=== PATIENT | female | born 1975 | race Caucasian/White ===

== ENCOUNTER → 2016-11-14 | Day surgery (SDC) | payer OTHER ==
[~2016-11-14] MED LIST: APREPITANT 40 MG CAP ONE; CIPR500T2 PO; IBUP-232 PO; LACTATED RINGER'S 1000 ML INJ 1,000 ML ONE; LACTCAP8 PO; MIDAZOLAM HCL 2 MG/2 ML VIAL ONE; NYST10007 TOPICAL; ONDANSETRON HCL 4 MG/2 ML VIAL IV PUSH ONE; PROPOFOL 200 MG/20 ML AMP IV ONE; ceFAZolin INJ 1,000 MG VIAL ONE
--- NOTE | 2016-11-16 09:36 | MP ---
cc: GARRET ALVAREZ M.D. DATE OF SURGERY 11/14/2016 DATE OF 1975 PREOPERATIVE DIAGNOSIS Patient with menorrhagia. PROCEDURE Exam under anesthesia. Diagnostic hysteroscopy. Fractional D&C. POSTOPERATIVE DIAGNOSIS Menorrhagia. SURGEON MD Jimmie ANESTHESIA General with LMA. ESTIMATED BLOOD LOSS None. DRAINS None. OPERATIVE FINDINGS The patient had a retroverted uterus measuring about 8 cm. No focal abnormality is present. No pelvic mass, no fixation, no deformity. Endometrial cavity was symmetrical without any focal abnormality. INDICATIONS FOR PROCEDURE Patient with recurrent heavy menstrual bleeding. Desires future fertility. RECOMMENDATIONS Proceed with endoscopic-directed biopsy. PROCEDURE The patient was taken to the operating room under general anesthesia, had an LMA placed. She was carefully positioned in dorsal lithotomy position using candy-cane stirrups with sequentials placed on lower extremities for VTE prophylaxis. She was prepped and draped. A time-out was conducted and agreed by all present in the room. The procedure initiated by examining the patient. The patient's cervix is midline, secured with a single-tooth tenaculum. Uterine sound was placed gently in a retroverted position measuring 8 cm. The endocervical canal was curetted and sent as a separate surgery pathology specimen. Hysteroscope was then used after dilating the cervix to #20 Jang dilator. The camera was a 0-degree lens with normal saline as distension media. Findings were described above. At the completion of the case, curettage of the endometrial cavity was performed and sent in permanent fixation. At the completion of the case final count was correct. The patient was stable. She was taken to the recovery room on room air. Garret Alvarez MD [facility] /8:00 AM /9:29 AM
== END | disposition home or self-care (01) ==
LOC: ESDC 06:16
PROVIDERS: ATTEND Obstetrics & Gynecology
DX: N92.0 Excessive and frequent menstruation with regular cycle (principal)
CPT/HCPCS: 00952; 58558; 88305; J0690; J2250; J2405; J3010; J7120; J8501

== ENCOUNTER 2017-02-11 06:20 | Inpatient (IN) | payer OTHER ==
[2017-02-11] VITALS (10 sets, daily range): BP systolic 107–125; BP diastolic 58–73; PULSE 62–100; RESP 17–20; TEMP 96.4–101.7; O2SAT 95–100
[~2017-02-11] VITALS: Ht 182.9 cm; Wt 120.2 kg
[~2017-02-11 06:20] MED LIST changes: -APREPITANT 40 MG CAP ONE; -LACTATED RINGER'S 1000 ML INJ 1,000 ML ONE; -MIDAZOLAM HCL 2 MG/2 ML VIAL ONE; -ONDANSETRON HCL 4 MG/2 ML VIAL IV PUSH ONE; -PROPOFOL 200 MG/20 ML AMP IV ONE; -ceFAZolin INJ 1,000 MG VIAL ONE
[2017-02-11] MEDS ORDERED: SODIUM CHLOR 0.9% 1000 ML INJ 1,000 ML IV SCH (06:59)
[2017-02-11] MEDS ORDERED: SODIUM CHLORIDE 0.9% FLUSH 10 ML FLUSH IV FLUSH PRN ×2 (07:00→10:30)
[2017-02-11] MEDS ORDERED: HYDROmorphone HCL PF 1 MG/ML VIAL IVS ONE (07:00)
[2017-02-11] MEDS ORDERED: cefTRIAXone INJ 1,000 MG in SODIUM CHLORIDE 0.9% INJ 100 ML IV ONE (07:00)
[2017-02-11] MEDS ORDERED: SODIUM CHLOR 0.9% 1000 ML INJ 1,000 ML IV ONE ×2 (07:00→09:15)
[2017-02-11] MEDS ORDERED: ONDANSETRON HCL 4 MG/2 ML VIAL IVP ONE (07:00)
--- NOTE | 2017-02-11 07:06 | PD ---
HPI Chief Complaint: Complaint Time Seen by Provider: 06:50 Travel History International Travel<30 days: No Contact w/Intl Traveler<30days: No Traveled to known affect area: No History of Present Illness HPI This is a 41 year old female who presents to the emergency department with back pain and lower abdominal pain, constant, moderate severity that has been going on for 3 days, associated with multiple episodes of vomiting. Patient denies any dysuria, frequency or urgency. She says 4 days ago she was diagnosed with a likely kidney infection by her primary care physician. She started taking ciprofloxacin 3 days ago but she's had no relief. She says she was up all night shaking with chills, vomiting and with severe pain in her lower back. She is otherwise healthy. She denies any history of IV drug use. She has had a gastric bypass in the past. PFSH Past Medical History Cancer: No Cardiovascular Problems: No Diabetes: No Diminished Hearing: No Endocrine: No Glaucoma: No Genitourinary: No Hepatitis: No Hiatal Hernia: No Hypertension: No Immune Disorder: No Musculoskeletal: Yes (ARTHRITIS ABIOLA KNEES) Neurologic: Yes (OCCAS MIGRAINE HEADACHES) Psychiatric: No Reproductive: No Respiratory: No Thyroid Disease: No ?: Not LMP: 01/27/17 : 2 Para: 1 Past Surgical History Abdominal Surgery: Yes (LAP BAND SX 2006 / GASTRIC BYPASS) AICD: No Body Medical Devices: LAP BAND Cardiac Surgery: No Ear Surgery: No Endocrine Surgery: No Eye Surgery: No Genitourinary Surgery: No Gynecologic Surgery: Yes (C SECTION X2; D & C X 3 , ) Joint Replacement: No Oral Surgery: No Pacemaker: No Thoracic Surgery: No Other Surgery: Yes (DNC SEP 2008) Social History Alcohol Use: No Tobacco Use: No (08/14 PPD) Substance Use: No Allergies-Medications (Allergen,Severity, Reaction): Coded Allergies: No Known Allergies (Verified , 02/11/17) Reported Meds & Prescriptions Reported Meds & Active Scripts Active Probiotic (Lactobacillus Acidophilus) 1 Cap Cap 1 Cap PO DAILY Ciprofloxacin (Ciprofloxacin HCl) 500 Mg Tab 500 Mg PO BID Ibuprofen 600 Mg Tab 600 Mg PO Q6H PRN Review of Systems Except as stated in HPI: all other systems reviewed are Neg Physical Exam Narrative GENERAL:Well appearing, no acute distress SKIN: Focused skin assessment warm and dry. HEAD: Atraumatic. Normocephalic. EYES: Pupils equal and round. No injection or drainage. ENT: Moist mucous membranes NECK: Trachea midline. CARDIOVASCULAR: Regular rate and rhythm. No murmur appreciated. RESPIRATORY: Clear to auscultation. Breath sounds equal bilaterally. GASTROINTESTINAL: Abdomen soft, tender to palpation in the suprapubic region with no rebound/guarding. : bilateral CVA tenderness. MUSCULOSKELETAL: No obvious deformities. NEUROLOGICAL: Awake and alert. No obvious cranial nerve deficits. Moving all extremities PSYCHIATRIC: Appropriate mood and affect; insight and judgment normal. Data Data Last Documented VS Vital Signs Date Time Temp Pulse Resp B/P Pulse Ox O2 Delivery O2 Flow Rate FiO2 02/11/17 09:20 70 17 124/63 98 Nasal Cannula 2 02/11/17 08:17 99.5 Orders Complete Blood Count With Diff (02/11/17 06:59) Comprehensive Metabolic Panel (02/11/17 06:59) Lipase (02/11/17 06:59) Lactic Acid (02/11/17 06:59) Urinalysis - C+S If Indicated (02/11/17 06:59) Iv Access Insert/Monitor (02/11/17 06:59) Ecg Monitoring (02/11/17 06:59) Oximetry (02/11/17 06:59) Ondansetron Inj (Zofran Inj) (02/11/17 07:00) Sodium Chlor 0.9% 1000 Ml Inj (Ns 1000 M (02/11/17 06:59) Sodium Chloride 0.9% Flush (Ns Flush) (02/11/17 07:00) Hydromorphone Pf Inj (Dilaudid Pf Inj) (02/11/17 07:00) Blood Culture (02/11/17 06:59) Sodium Chlor 0.9% 1000 Ml Inj (Ns 1000 M (02/11/17 07:00) Ceftriaxone Inj (Rocephin Inj) (02/11/17 07:00) Ketorolac Inj (Toradol Inj) (02/11/17 07:30) Urine Culture (02/11/17 08:10) Ed Urine Pregnancytest Poc (02/11/17 09:01) Hydromorphone Pf Inj (Dilaudid Pf Inj) (7/2/17 09:15) Sodium Chlor 0.9% 1000 Ml Inj (Ns 1000 M (02/11/17 09:15) Labs Laboratory Tests Test 02/11/17 02/11/17 07:20 08:10 White Blood Count 5.0 TH/MM3 Red Blood Count 4.06 MIL/MM3 Hemoglobin 10.6 GM/DL Hematocrit 33.2 % Mean Corpuscular Volume 81.7 FL Mean Corpuscular Hemoglobin 26.2 PG Mean Corpuscular Hemoglobin 32.0 % Concent Red Cell Distribution Width 15.5 % Platelet Count 122 TH/MM3 Mean Platelet Volume 10.5 FL Neutrophils (%) (Auto) 83.4 % Lymphocytes (%) (Auto) 7.9 % Monocytes (%) (Auto) 8.4 % Eosinophils (%) (Auto) 0.0 % Basophils (%) (Auto) 0.3 % Neutrophils # (Auto) 4.1 TH/MM3 Lymphocytes # (Auto) 0.4 TH/MM3 Monocytes # (Auto) 0.4 TH/MM3 Eosinophils # (Auto) 0.0 TH/MM3 Basophils # (Auto) 0.0 TH/MM3 CBC Comment DIFF FINAL Differential Comment Sodium Level 139 MEQ/L Potassium Level 3.8 MEQ/L Chloride Level 105 MEQ/L Carbon Dioxide Level 26.9 MEQ/L Anion Gap 7 MEQ/L Blood Urea Nitrogen 14 MG/DL Creatinine 1.04 MG/DL Estimat Glomerular Filtration 59 ML/MIN Rate Random Glucose 103 MG/DL Lactic Acid Level 1.3 mmol/L Calcium Level 9.3 MG/DL Total Bilirubin 0.8 MG/DL Aspartate Amino Transf 15 U/L (AST/SGOT) Alanine Aminotransferase 19 U/L (ALT/SGPT) Alkaline Phosphatase 70 U/L Total Protein 7.6 GM/DL Albumin 3.2 GM/DL Lipase 100 U/L Urine Color YELLOW Urine Turbidity HAZY Urine pH 6.5 Urine Specific [place] 1.014 Urine Protein 100 mg/dL Urine Glucose (UA) NEG mg/dL Urine Ketones 10 mg/dL Urine Occult Blood MOD Urine Nitrite NEG Urine Bilirubin NEG Urine Urobilinogen 8.0 MG/DL Urine Leukocyte Esterase SMALL Urine RBC 135 /hpf Urine WBC 48 /hpf Urine Squamous Epithelial 7 /hpf Cells Urine Transitional Epithelial <1 /hpf Cells Urine Bacteria MOD /hpf Urine Mucus FEW /lpf Microscopic Urinalysis Comment CULTURE INDICATED MDM Medical Decision Making Medical Screen Exam Complete: Yes Emergency Medical Condition: Yes Interpretation(s) Temperature is 101.7, normotensive No leukocytosis Electrolytes are reassuring Lactic acid is 1.3 Lipase is normal Urinalysis demonstrates urinary tract infection Differential Diagnosis Pyelonephritis, nephrolithiasis, sepsis, cystitis Narrative Course This is a 41-year-old female who presents to the emergency department with fever and bilateral flank pain with nausea and vomiting. The patient was diagnosed with a likely kidney infection earlier this week and has taken 3 days of ciprofloxacin that her symptoms are worsening. She is placed in a monitor and an IV was established. She was found to be febrile. She was given a dose of ceftriaxone and given 2 L of IV fluid. She was given pain control and antiemetics in the emergency department. Urinalysis confirms urinary tract infection. She does have a lot of blood in her urine which I suspect is related to more hemorrhagic cystitis. She doesn't lateralize her pain and also I doubt this is a kidney stone. We discussed the risks versus benefits of imaging and we decided to defer at this time. Despite multiple doses of pain medication patient still feels uncomfortable and doesn't look well on exam. I think she merits admission to the hospital and she's failed outpatient therapy. Diagnosis Primary Impression: Pyelonephritis Admitting Information Admitting Physician Requests: Admit Melanie Cabrera MD Feb 11, 2017 07:06
[2017-02-11] MEDS ORDERED: KETOROLAC TROMETHAMINE 30 MG/ML (IVP) VIAL IVP ONE (07:30)
[2017-02-11 07:32] LABS: AUTOMATED NEUTROPHIL # 4.1 TH/MM3 (1.8-7.7); BASOPHIL % 0.3 % (0.0-2.0); HEMATOCRIT 33.2 % (35.0-46.0); HEMO FLAGS DIFF FINAL; LYMPH % 7.9 % (9.0-44.0); LYMPHOCYTE # 0.4 TH/MM3 (1.0-4.8); MEAN CELL VOLUME 81.7 FL (80.0-100.0); MEAN CORPUSCULAR HEMOGLOBIN 26.2 PG (27.0-34.0); MONO % 8.4 % (0.0-8.0); NEUT % 83.4 % (16.0-70.0); PLATELET COUNT 122 TH/MM3 (150-450); RED BLOOD COUNT 4.06 MIL/MM3 (4.00-5.30); RED CELL DISTRIBUTION WIDTH 15.5 % (11.6-17.2)
[2017-02-11 08:16] LABS: ALT (GPT) 19 U/L (10-53); ANION GAP 7 MEQ/L (5-15); AST (GOT) 15 U/L (15-37); BICARBONATE 26.9 MEQ/L (21.0-32.0); BLOOD UREA NITROGEN 14 MG/DL (7-18); CHLORIDE 105 MEQ/L (98-107); GLOMERULAR FILTRATION RATE 59 ML/MIN (>89); POTASSIUM 3.8 MEQ/L (3.5-5.1); SODIUM (NA) 139 MEQ/L (136-145)
[2017-02-11 08:18] LABS: ALKALINE PHOSPHATASE 70 U/L (45-117); TOTAL BILIRUBIN ADULT 0.8 MG/DL (0.2-1.0)
[2017-02-11 08:32] LABS: BACTERIA, URINE MOD /hpf; BLOOD, URINE MOD (NEG); GLUCOSE,URINE NEG (NEG); KETONE, URINE 10 mg/dL (NEG); MUCUS URINE FEW /lpf (OCC); NITRITE,URINE NEG (NEG); PH, URINE 6.5 (5.0-8.5); SQUAMOUS EPITHELIAL CELL URINE 7 /hpf (0-5); TRANSITIONAL EPI CELLS, URINE <1 /hpf; URINE COLOR YELLOW (YELLW/STRAW)
[2017-02-11 08:34] LABS: COMMENT (UR) CULTURE INDICATED; CULTURE IF INDICATED CULTURE INDICATED
[2017-02-11] MEDS ORDERED: HYDROmorphone HCL PF 1 MG/ML VIAL IV PUSH ONE (09:15)
--- NOTE | 2017-02-11 10:14 | HHI.HP ---
HPI Service Family Medicine Primary Care Physician No Primary Care Physician Admission Diagnosis pyelonephritis Diagnoses: International Travel<30 Days: No Contact w/Intl Traveler<30days: No Known Affected Area: No History of Present Illness Patient is a 39-year-old female with a past medical history of bilateral knee arthritis that presents to the [facility] ED with a chief complaints of fever, chills, nausea, vomiting, dysuria, back pain of one week duration. She was last seen at the [facility] on Sunday where she was prescribed ciprofloxacin by mouth to complete a 14 day course. She took the medication as prescribed for 2 days but continued to have fever and chills and back pain,basically, she did not improve. Last night she could barely sleep and was vomiting and dry heaving all night. She also had increasing fever up to 102 F and worsened back pain, prompting her to present to the ED. (Silvia Herrera MD R1) Review of Systems Constitutional: COMPLAINS OF: Fever, Chills, Change in appetite, Night Sweats Eyes: DENIES: Blurred vision, Vision loss Ears, nose, mouth, throat: DENIES: Hearing loss, Throat pain, Ear Pain Respiratory: DENIES: Cough, Shortness of breath Cardiovascular: COMPLAINS OF: Palpitations, DENIES: Chest pain, Syncope, Lower Extremity Edema Gastrointestinal: COMPLAINS OF: Abdominal pain, Constipation, Nausea, Vomiting , DENIES: Bloody stools Genitourinary: COMPLAINS OF: Urinary frequency, Dysuria Musculoskeletal: COMPLAINS OF: Joint pain (chronic arthritis of the knees), Back pain Integumentary: DENIES: Pruritus, Rash Hematologic/lymphatic: DENIES: Bruising Neurologic: COMPLAINS OF: Headache, DENIES: Localized weakness, Paresthesias Psychiatric: DENIES: Anxiety, Depression (Silvia Herrera MD R1) Past Family Social History Past Medical History Morbid obesity Bilateral knee arthritis Past Surgical History C/S x2 Lap band surgery 2006 Gastric bypass 2013 Hemorrhoidectomy Multiple D+Cs Reported Medications Reported Meds & Active Scripts Active Probiotic (Lactobacillus Acidophilus) 1 Cap Cap 1 Cap PO DAILY Ciprofloxacin (Ciprofloxacin HCl) 500 Mg Tab 500 Mg PO BID Ibuprofen 600 Mg Tab 600 Mg PO Q6H PRN (Silvia Herrera MD R1) Allergies: Coded Allergies: No Known Allergies (Verified , 02/11/17) Family History Father at 45yo due to "bone cancer" Mother living with DM2. 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 Used to smoke 1ppd EtOH: denies Illicit drugs: denies (Eko,Silvia U R1) Physical Exam Vital Signs Vital Signs Date Time Temp Pulse Resp B/P Pulse Ox O2 Delivery O2 Flow Rate FiO2 02/11/17 09:20 70 17 124/63 98 Nasal Cannula 2 02/11/17 09:19 17 02/11/17 09:19 17 02/11/17 08:28 78 17 125/59 97 Nasal Cannula 2 02/11/17 08:17 99.5 02/11/17 07:15 82 18 122/73 98 Nasal Cannula 2 02/11/17 07:02 98 Room Air 02/11/17 06:22 101.7 100 20 122/59 96 Room Air Physical Exam GENERAL: This is a well-nourished, well-developed patient, obese pt in no apparent distress but appears in pain. SKIN: No rashes, ecchymoses or lesions. Cool and dry. HEAD: Atraumatic. Normocephalic. No temporal or scalp tenderness. EYES: Pupils equal round and reactive. Extraocular motions intact. No scleral icterus. No injection or drainage. ENT: Nose without bleeding, purulent drainage or septal hematoma. Throat without erythema, tonsillar hypertrophy or exudate. Uvula midline. Airway patent. NECK: Trachea midline. No JVD or lymphadenopathy. Supple, nontender, no meningeal signs. CARDIOVASCULAR: Regular rate and rhythm without murmurs, gallops, or rubs. RESPIRATORY: Clear to auscultation. Breath sounds equal bilaterally. No wheezes , rales, or rhonchi. GASTROINTESTINAL: Abdomen soft, non-tender, tender to palpation in the suprapubic region bilaterally. No hepato-splenomegaly, or palpable masses. No guarding. BACK: Bilateral CVA tenderness to palpation MUSCULOSKELETAL: Extremities without clubbing, cyanosis, or edema. No joint tenderness, effusion, or edema noted. No calf tenderness. NEUROLOGICAL: Awake and alert. Cranial nerves II through XII intact. Motor and sensory grossly within normal limits. Five out of 5 muscle strength in all muscle groups. Normal speech. Laboratory Laboratory Tests Test 02/11/17 02/11/17 07:20 08:10 White Blood Count 5.0 Red Blood Count 4.06 Hemoglobin 10.6 Hematocrit 33.2 Mean Corpuscular Volume 81.7 Mean Corpuscular Hemoglobin 26.2 Mean Corpuscular Hemoglobin 32.0 Concent Red Cell Distribution Width 15.5 Platelet Count 122 Mean Platelet Volume 10.5 Neutrophils (%) (Auto) 83.4 Lymphocytes (%) (Auto) 7.9 Monocytes (%) (Auto) 8.4 Eosinophils (%) (Auto) 0.0 Basophils (%) (Auto) 0.3 Neutrophils # (Auto) 4.1 Lymphocytes # (Auto) 0.4 Monocytes # (Auto) 0.4 Eosinophils # (Auto) 0.0 Basophils # (Auto) 0.0 CBC Comment DIFF FINAL Differential Comment Sodium Level 139 Potassium Level 3.8 Chloride Level 105 Carbon Dioxide Level 26.9 Anion Gap 7 Blood Urea Nitrogen 14 Creatinine 1.04 Estimat Glomerular Filtration 59 Rate Random Glucose 103 Lactic Acid Level 1.3 Calcium Level 9.3 Total Bilirubin 0.8 Aspartate Amino Transf 15 (AST/SGOT) Alanine Aminotransferase 19 (ALT/SGPT) Alkaline Phosphatase 70 Total Protein 7.6 Albumin 3.2 Lipase 100 Urine Color YELLOW Urine Turbidity HAZY Urine pH 6.5 Urine Specific [place] 1.014 Urine Protein 100 Urine Glucose (UA) NEG Urine Ketones 10 Urine Occult Blood MOD Urine Nitrite NEG Urine Bilirubin NEG Urine Urobilinogen 8.0 Urine Leukocyte Esterase SMALL Urine RBC 135 Urine WBC 48 Urine Squamous Epithelial 7 Cells Urine Transitional Epithelial <1 Cells Urine Bacteria MOD Urine Mucus FEW Microscopic Urinalysis Comment CULTURE INDICATED Date/Time Procedure Status Source Growth 02/11/17 08:10 Urine Culture Received Urine Clean Catch Pending 02/11/17 07:20 Aerobic Blood Culture Received Blood Peripheral Pending 02/11/17 07:20 Anaerobic Blood Culture Received Blood Peripheral Pending (Silvia Herrera MD R1) Result Diagram: 02/11/1720 02/11/1720 Course Patient received 1 g of Rocephin in the ED along with 30 mg Toradol IV and up to 1.5 mg Dilaudid IV. (Silvia Herrera MD R1) Assessment and Plan Assessment and Plan Patient is a 41-year-old female that presents with chief complaints of fever, nausea, vomiting, back pain, and dysuria that is concerning for acute pyelonephritis. Due to the patient failing outpatient therapy with ciprofloxacin by mouth, she would be admitted to the hospital for management suite IV antibiotics, fluids, and pain control. Code Status Full code Discussed Condition With Discussed with Dr. Crandall. Will discuss with Dr. Medina, PGY 3 (Silvia Herrera MD R1) Attending Attestation Patient seen and examined. Case reviewed and discussed with the Dr Herrera. Agree with plan of care as discussed with me and documented in the resident note. seen on day of admission. she is still nauseated but has iv fluids. Zofran helped. she still has pain across her back and lower abdomen. (Tisha Crandall MD) Problem List: (1) Acute pyelonephritis Status: Acute Plan: -On admission, patient met sepsis criteria with fever of 101.7F, and pulse of 100 with possible source of UTI -WBC within normal limits at 5.0, lipase within normal limits at 1.3 -Creatinine 1.04 with GFR 59 -UA shows moderate occult blood, small leukocyte esterase, 135 RBC, 48 WBC, moderate bacteria -Urine culture pending -Blood culture pending -Kidney ultrasound pending -Continue Rocephin 1 g IV every 24 hours -Pyridium 200 mg by mouth 3 times a day when necessary for dysuria -Dilaudid 0.5 mg IV every 4 hours when necessary pain 6-10 -Percocet 5-325 IV every 4 hours when necessary pain 1-5 -Percocet 10-325 IV every 4 hours when necessary pain 6-10 -Tylenol 650 mg by mouth every 6 hours when necessary for pain 1-10 and/or temperature greater than or equal to 100.4F -Zofran 4 mg IV every 6 hours when necessary nausea/vomiting (2) Anemia Status: Acute Plan: -CBC shows hemoglobin hematocrit 10.6/33.2 -Most likely due to iron deficiency -Recommend outpatient management (3) FEN/DVT PPX/GI PPX/Nursing Orders Status: Acute Plan: Fluids: NS @150 mls/hr IV Electrolytes: Will monitor and replace as needed Nutrition: Regular adult diet, DVT Prophylaxis: Bilateral SCDs, Heparin 5000 units subcutaneous Q8h GI Prophylaxis: Protonix 40 mg IV daily, switch to by mouth once patient is tolerating by mouth medication Constipation prophylaxis: Jesica-colase 2 tab PO HS -Vitals Q4h -Monitor I's and O's -Activity OOB ad cindy Disposition: Possibly in the next 1-3 days pending clinical improvement (Silvia Herrera MD R1) Physician Certification 2 Midnight Certification Type: Admission for Inpatient Services Order for Inpatient Services The services are ordered in accordance with Medicare regulations or non- Medicare payer requirements, as applicable. In the case of services not specified as inpatient-only, they are appropriately provided as inpatient services in accordance with the 2-midnight benchmark. Estimated LOS (days): 3 days is the estimated time the patient will need to remain in the hospital, assuming treatment plan goals are met and no additional complications. Post-Hospital Plan: Home (Silvia Herrera MD R1) Problem Qualifiers (1) Anemia: Qualified Code: D64.9 - Anemia, unspecified type Silvia Herrera MD R1 Feb 11, 2017 10:14 Tisha Crandall MD Feb 11, 2017 17:00
[2017-02-11] MEDS ORDERED: ACETAMINOPHEN 325 MG TAB PO PRN (10:45)
[2017-02-11] MEDS ORDERED: PHENAZOPYRIDINE HCL 200 MG TAB PO PRN (10:45)
[2017-02-11] MEDS ORDERED: ONDANSETRON HCL 4 MG/2 ML VIAL IV PRN (10:45)
[2017-02-11] MEDS ORDERED: KETOROLAC TROMETHAMINE 30 MG/ML (IVP) VIAL IVP PRN (10:45)
[2017-02-11] MEDS ORDERED: HYDROmorphone HCL PF 1 MG/ML VIAL IV PRN (10:45)
[2017-02-11] MEDS: SODIUM CHLORIDE 0.9% FLUSH 10 ML FLUSH IV FLUSH SCH ×2 (11:00→21:00)
[2017-02-11] MEDS: SODIUM CHLOR 0.9% 1000 ML INJ 1,000 ML IV SCH ×2 (11:08→17:30)
[2017-02-11] MEDS ORDERED: oxyCODONE/ACETAMINOPHEN 5 MG/325 MG TAB PO PRN (11:45)
[2017-02-11] MEDS ORDERED: PANTOPRAZOLE SODIUM 40 MG VIAL IV PUSH SCH (12:00)
[2017-02-11] MEDS ORDERED: ENOXAPARIN SODIUM 40 MG/0.4 ML SYRINGE SQ SCH (12:00)
[2017-02-11] MEDS: oxyCODONE/ACETAMINOPHEN 10 MG/325 MG TAB PO PRN ×2 (13:27→22:49)
[2017-02-11] MEDS: HEPARIN SODIUM - SQ 10,000 UNITS/ML VIAL SQ SCH ×2 (13:28→22:52)
--- NOTE | 2017-02-11 18:31 | RADRPT ---
EXAM DATE/TIME: 02/11/2017 16:47 [facility] COMPARISON: No previous studies available for comparison. INDICATIONS : Flank pain. MEDICAL HISTORY : Arthritis. Migraines. Palpitations. SURGICAL HISTORY : section. Lap band surgery. Gastric bypass. D&C. ENCOUNTER: Initial ACUITY: 1 week PAIN SCORE: 8/10 LOCATION: Bilateral flank MEASUREMENTS: RIGHT KIDNEY: 13.7 x 7.1 x 5.7 cm LEFT KIDNEY: 11.7 x 6.3 x 6.1 cm FINDINGS: RIGHT KIDNEY: Renal cortex is normal in thickness and echotexture. No hydronephrosis, stone, or mass. LEFT KIDNEY: Renal cortex is normal in thickness and echotexture. No hydronephrosis, stone, or mass. BLADDER: Within normal limits given the degree of distension. OTHER: The spleen is enlarged measuring 15.1 cm in length. CONCLUSION: Normal appearance of the kidneys. The spleen is enlarged. Alpesh Mcclelland MD on February 11, 2017 at 18:27 Board Certified Radiologist. This report was verified electronically.
[2017-02-11] MEDS: DOCUSATE SODIUM 50 MG/SENNA 8.6 MG TAB PO SCH (21:00)
[2017-02-12] VITALS (7 sets, daily range): BP systolic 108–128; BP diastolic 60–77; PULSE 65–86; RESP 18–22; TEMP 97.8–102.4; O2SAT 95–99
[2017-02-12] MEDS: SODIUM CHLOR 0.9% 1000 ML INJ 1,000 ML IV SCH ×4 (00:20→19:54)
[2017-02-12 05:46] LABS: AUTOMATED NEUTROPHIL # 2.2 TH/MM3 (1.8-7.7); BASOPHIL % 0.8 % (0.0-2.0); EOSINOPHIL % 0.2 % (0.0-4.0); HEMATOCRIT 26.8 % (35.0-46.0); HEMO FLAGS DIFF FINAL; LYMPH % 21.6 % (9.0-44.0); LYMPHOCYTE # 0.7 TH/MM3 (1.0-4.8); MEAN CELL VOLUME 81.5 FL (80.0-100.0); MEAN CORPUSCULAR HEMOGLOBIN 26.8 PG (27.0-34.0); MEAN CORPUSCULAR HGB CONC 32.9 % (32.0-36.0); MONO % 11.1 % (0.0-8.0); NEUT % 66.3 % (16.0-70.0); PLATELET COUNT 113 TH/MM3 (150-450); RED BLOOD COUNT 3.29 MIL/MM3 (4.00-5.30); RED CELL DISTRIBUTION WIDTH 15.8 % (11.6-17.2); WHITE BLOOD COUNT 3.4 TH/MM3 (4.0-11.0)
[2017-02-12] MEDS: HEPARIN SODIUM - SQ 10,000 UNITS/ML VIAL SQ SCH ×3 (06:15→23:05)
[2017-02-12] MEDS: cefTRIAXone INJ 1,000 MG in SODIUM CHLORIDE 0.9% INJ 100 ML IV SCH (06:16)
[2017-02-12 07:21] LABS: BICARBONATE 24.5 MEQ/L (21.0-32.0); POTASSIUM 3.7 MEQ/L (3.5-5.1)
--- NOTE | 2017-02-12 08:57 | HHI.FPPN ---
Subjective Remarks Patient states her pain is not as bad as yesterday, however she still has mild discomfort across her lower back and suprapubic area. She continues to have fevers and chills although this is slightly improved as well. She continues to decreased energy. Denies headache, shortness of breath, vision changes. (Fabian Medina MD R2) Objective Vitals Vital Signs Date Time Temp Pulse Resp B/P Pulse Ox O2 Delivery O2 Flow Rate FiO2 02/12/17 08:05 98.8 65 20 112/62 95 02/12/17 04:00 98.7 78 18 116/60 98 02/12/17 00:03 100.2 02/12/17 00:03 16 02/12/17 00:00 102.4 86 19 128/77 98 02/11/17 20:00 96.4 77 18 122/69 100 02/11/17 16:00 98.5 66 18 110/70 95 02/11/17 12:00 98.6 62 18 107/66 96 02/11/17 11:27 70 18 108/58 97 Room Air 02/11/17 10:29 17 02/11/17 09:20 70 17 124/63 98 Nasal Cannula 2 02/11/17 09:19 17 02/11/17 09:19 17 I/O 02/11/17 02/11/17 02/11/17 02/12/17 02/12/17 02/12/17 07:00 15:00 23:00 07:00 15:00 23:00 Intake Total 720 ml 1630 ml 2130 ml Balance 720 ml 1630 ml 2130 ml Intake Oral 720 ml 1080 ml 480 ml IV Total 550 ml 1650 ml # Voids 1 5 1 # Bowel Movements 0 (Fabian Medina MD R2) Result Diagram: 02/12/17 0513 02/12/17 0513 Imaging Last Impressions Renal Ultrasound 02/11/17 0000 Signed Impressions: Service Date/Time: Saturday, February 11, 2017 16:47 - CONCLUSION: Normal appearance of the kidneys. The spleen is enlarged. Alpesh Mcclelland MD Objective Remarks GENERAL: This is a well-nourished, well-developed patient in no acute distress. SKIN: No rashes, ecchymoses or lesions. Warm and dry. HEAD: Atraumatic. Normocephalic. No temporal or scalp tenderness. EYES: Pupils equal round and reactive. Extraocular motions intact. No scleral icterus. No injection or drainage. ENT: Nose without bleeding, purulent drainage or septal hematoma. Throat without erythema, tonsillar hypertrophy or exudate. Uvula midline. Airway patent. NECK: Trachea midline. No JVD or lymphadenopathy. Supple, nontender, no meningeal signs. CARDIOVASCULAR: Regular rate and rhythm without murmurs, gallops, or rubs. RESPIRATORY: Clear to auscultation. Breath sounds equal bilaterally. No wheezes , rales, or rhonchi. GASTROINTESTINAL: Abdomen soft, non-tender, mildly tender to palpation in the suprapubic region bilaterally. No hepato-splenomegaly, or palpable masses. No guarding. BACK: Improvement in Bilateral CVA tenderness MUSCULOSKELETAL: Extremities without clubbing, cyanosis, or edema. No joint tenderness, effusion, or edema noted. No calf tenderness. NEUROLOGICAL: Awake and alert. Cranial nerves II through XII intact. Motor and sensory grossly within normal limits. Five out of 5 muscle strength in all muscle groups. Normal speech. (Fabian Medina MD R2) A/P Assessment and Plan Patient is a 41-year-old female presented septic with pyelonephritis. Treatment as below Discharge Planning Pending Clinical improvement (Fabian Medina MD R2) Attending Attestation Patient seen and examined. Case reviewed and discussed with the resident team. Agree with plan of care as discussed with me and documented in the resident note. improving daily clinically but still febrile. (Tisha Crandall MD) Problem List: (1) Acute pyelonephritis Status: Acute Plan: Patient continues to have fever, low white count Urine culture 02/11 pending Blood culture 02/11 pending Kidney ultrasound: Normal Antibiotics: Continue ceftriaxone daily (started 02/11); adjust antibiotics pending culture results Pain control: Percocet 10 mg every 6 hours pain 6-10, Percocet 5 mg pain 1-5; Dilaudid IV for breakthrough pain (2) Sepsis Status: Acute Plan: see pyelonephritis above (3) Pancytopenia Status: Acute Plan: Likely secondary to infectious process. Patient was mildly pancytopenic prior to starting rocephin, so rocephin is likely not the culprit. Continue treatment as above. If patient continues to be pancytopenic despite appropriate treatment, consider hematology consult vs ID consult; consider switching abx treatment at that time.. (4) FEN/DVT PPX/GI PPX/Nursing Orders Status: Acute Plan: Fluids: NS @150 mls/hr IV Electrolytes: Will monitor and replace as needed Nutrition: Regular adult diet, DVT Prophylaxis: Bilateral SCDs, Heparin 5000 units subcutaneous Q8h (Fabian Medina MD R2) Fabian Medina MD R2 Feb 12, 2017 08:57 Tisha Crandall MD Feb 13, 2017 13:33
[2017-02-12] MEDS: SODIUM CHLORIDE 0.9% FLUSH 10 ML FLUSH IV FLUSH SCH ×2 (09:00→19:55)
[2017-02-12] MEDS ORDERED: TEMAZEPAM 15 MG CAP PO PRN (11:30)
[2017-02-12] MEDS: oxyCODONE/ACETAMINOPHEN 10 MG/325 MG TAB PO PRN ×2 (13:08→19:54)
[2017-02-12] MEDS: DOCUSATE SODIUM 50 MG/SENNA 8.6 MG TAB PO SCH ×2 (19:57→23:08)
[2017-02-13 00:29] VITALS: BP 110/64; PULSE 56; RESP 16; TEMP 98.3; O2SAT 94
[2017-02-13] MEDS: SODIUM CHLOR 0.9% 1000 ML INJ 1,000 ML IV SCH (03:01)
[2017-02-13 03:02] VITALS: BP 135/82; PULSE 76; RESP 16; TEMP 100.1; O2SAT 96
[2017-02-13] MEDS: oxyCODONE/ACETAMINOPHEN 10 MG/325 MG TAB PO PRN ×2 (05:14→22:09)
[2017-02-13] MEDS: cefTRIAXone INJ 1,000 MG in SODIUM CHLORIDE 0.9% INJ 100 ML IV SCH (06:14)
[2017-02-13] MEDS: HEPARIN SODIUM - SQ 10,000 UNITS/ML VIAL SQ SCH ×3 (06:15→22:05)
[2017-02-13 06:17] LABS: AUTOMATED NEUTROPHIL # 1.8 TH/MM3 (1.8-7.7); BASOPHIL % 0.5 % (0.0-2.0); EOSINOPHIL % 1.2 % (0.0-4.0); HEMATOCRIT 25.2 % (35.0-46.0); HEMO FLAGS DIFF FINAL; LYMPH % 28.9 % (9.0-44.0); LYMPHOCYTE # 0.9 TH/MM3 (1.0-4.8); MEAN CELL VOLUME 81.2 FL (80.0-100.0); MEAN CORPUSCULAR HGB CONC 33.3 % (32.0-36.0); MONO % 10.6 % (0.0-8.0); NEUT % 58.8 % (16.0-70.0); PLATELET COUNT 119 TH/MM3 (150-450); RED CELL DISTRIBUTION WIDTH 15.6 % (11.6-17.2)
[2017-02-13 06:28] LABS: BICARBONATE 27.2 MEQ/L (21.0-32.0); POTASSIUM 3.4 MEQ/L (3.5-5.1)
[2017-02-13 08:00] VITALS: BP 119/69; PULSE 53; RESP 16; TEMP 97.3; O2SAT 98
[2017-02-13] MEDS: SODIUM CHLORIDE 0.9% FLUSH 10 ML FLUSH IV FLUSH SCH ×2 (09:00→22:06)
[2017-02-13] MEDS ORDERED: POTASSIUM CHLORIDE 10 MEQ CONTROLLED RELEASE TAB PO ONE (09:00)
--- NOTE | 2017-02-13 10:07 | HHI.FPPN ---
Subjective Remarks Patient is doing much better this morning. Patient states she is no longer having fevers or chills. Her lower back pain is "much improved." She has a good appetite. She denies nausea, vomiting, abdominal pain, chest pain, shortness of breath. (Fabian Medina MD R2) Objective Vitals Vital Signs Date Time Temp Pulse Resp B/P Pulse Ox O2 Delivery O2 Flow Rate FiO2 02/13/17 08:00 97.3 53 16 119/69 98 02/13/17 03:02 100.1 76 16 135/82 96 02/13/17 00:29 98.3 56 16 110/64 94 02/12/17 20:00 97.8 82 18 127/70 98 02/12/17 16:15 98.6 72 22 114/65 97 02/12/17 12:00 100.2 73 22 108/72 99 I/O 02/12/17 02/12/17 02/12/17 02/13/17 02/13/17 02/13/17 07:00 15:00 23:00 07:00 15:00 23:00 Intake Total 2130 ml 2255 ml 1625 ml 1800 ml Output Total 1000 ml Balance 2130 ml 2255 ml 1625 ml 800 ml Intake Oral 480 ml 1480 ml 250 ml 720 ml IV Total 1650 ml 775 ml 1375 ml 1080 ml Output Urine Total 1000 ml # Voids 1 5 1 1 # Bowel Movements 0 0 (Fabian Medina MD R2) Result Diagram: 02/13/17 0332 02/13/17 033 Objective Remarks GENERAL: This is a well-nourished, well-developed patient in no acute distress. SKIN: No rashes, ecchymoses or lesions. Warm and dry. HEAD: Atraumatic. Normocephalic. No temporal or scalp tenderness. EYES: Pupils equal round and reactive. Extraocular motions intact. No scleral icterus. No injection or drainage. ENT: Nose without bleeding, purulent drainage or septal hematoma. Throat without erythema, tonsillar hypertrophy or exudate. Uvula midline. Airway patent. NECK: Trachea midline. No JVD or lymphadenopathy. Supple, nontender, no meningeal signs. CARDIOVASCULAR: Regular rate and rhythm without murmurs, gallops, or rubs. RESPIRATORY: Clear to auscultation. Breath sounds equal bilaterally. No wheezes , rales, or rhonchi. GASTROINTESTINAL: Abdomen soft, non-tender. No hepato-splenomegaly, or palpable masses. No guarding. BACK: Improvement in Bilateral CVA tenderness MUSCULOSKELETAL: Extremities without clubbing, cyanosis, or edema. No joint tenderness, effusion, or edema noted. No calf tenderness. NEUROLOGICAL: Awake and alert. Cranial nerves II through XII intact. Motor and sensory grossly within normal limits. Five out of 5 muscle strength in all muscle groups. Normal speech. (Fabian Medina MD R2) A/P Assessment and Plan Patient is a 41-year-old female presented septic with pyelonephritis. Treatment as below Discharge Planning Likely tomorrow (Fabian Medina MD R2) Attending Attestation Patient seen and examined. Case reviewed and discussed with the resident team. Agree with plan of care as discussed with me and documented in the resident note. pt requests iv Rocephin to finish out her 14 day course of abx for pyelo. she is concerned as po cipro did not help and she got worse and septic on this abx. when discussing that she could be changed to bactrim probably as a good po alternative, she asked if she could have a PICC line and return daily to infusion clinic as "I know that Rocephin works". Hopefully, a urine culture was done on 02/09 and will be available tomorrow. She has her labs sent to [facility] labs which should be open tomorrow as today is February 13. If the culture is complete an appropriate abx choice can be made. If cultures not available can consider other options. May consider consulting ID if pt needed infusion clinic as she may be having some mild pancytopenia from Rocephin or another cause. (Tisha Crandall MD) Problem List: (1) Acute pyelonephritis Status: Acute Plan: Improving clinically Urine culture 02/11: Gram-positive; I spoke with microbiology lab and they say this is contaminated. We'll be unable to direct sensitivities Blood culture 02/11: No growth to date Kidney ultrasound: Normal Antibiotics: Continue ceftriaxone daily (started 02/11); adjust antibiotics pending culture results Pain control: Percocet 10 mg every 6 hours pain 6-10, Percocet 5 mg pain 1-5; Dilaudid IV for breakthrough pain (2) Sepsis Status: Acute Plan: see pyelonephritis above (3) Pancytopenia Status: Acute Plan: Likely secondary to infectious process. Patient was mildly pancytopenic prior to starting rocephin, so rocephin is likely not the culprit. Continue treatment as above. If patient continues to be pancytopenic despite appropriate treatment, consider hematology consult vs ID consult; consider switching abx treatment at that time.. (4) FEN/DVT PPX/GI PPX/Nursing Orders Status: Acute Plan: Fluids: Tolerating by mouth Electrolytes: Will monitor and replace as needed Nutrition: Regular adult diet, DVT Prophylaxis: Bilateral SCDs, Heparin 5000 units subcutaneous Q8h (Fabian Medina MD R2) Fabian Medina MD R2 Feb 13, 2017 10:07 Tisha Crandall MD Feb 13, 2017 13:39
[2017-02-13 12:00] VITALS: BP 115/87; PULSE 52; TEMP 97.1; O2SAT 100
[2017-02-13 16:49] VITALS: BP 117/79; PULSE 83; RESP 16; TEMP 99.7; O2SAT 98
[2017-02-13 20:00] VITALS: BP 117/61; PULSE 114; RESP 16; TEMP 98.4; O2SAT 100
[2017-02-13] MEDS ORDERED: BISACODYL EC 5 MG TABEC PO PRN (20:00)
[2017-02-13] MEDS: DOCUSATE SODIUM 50 MG/SENNA 8.6 MG TAB PO SCH (22:05)
[2017-02-14] VITALS: BP 115/57; PULSE 76; RESP 16; TEMP 98.2; O2SAT 95
[2017-02-14] MEDS: oxyCODONE/ACETAMINOPHEN 10 MG/325 MG TAB PO PRN (03:50)
[2017-02-14 03:53] VITALS: BP 122/72; PULSE 66; RESP 16; TEMP 97.8; O2SAT 100
[2017-02-14] MEDS: cefTRIAXone INJ 1,000 MG in SODIUM CHLORIDE 0.9% INJ 100 ML IV SCH (06:29)
[2017-02-14] MEDS: HEPARIN SODIUM - SQ 10,000 UNITS/ML VIAL SQ SCH (06:30)
[2017-02-14 07:17] LABS: AUTOMATED NEUTROPHIL # 1.8 TH/MM3 (1.8-7.7); BASOPHIL % 0.6 % (0.0-2.0); EOSINOPHIL # 0.1 TH/MM3 (0-0.4); EOSINOPHIL % 2.3 % (0.0-4.0); HEMO FLAGS DIFF FINAL; LYMPH % 28.8 % (9.0-44.0); LYMPHOCYTE # 0.9 TH/MM3 (1.0-4.8); MEAN CORPUSCULAR HEMOGLOBIN 27.2 PG (27.0-34.0); MONO % 10.5 % (0.0-8.0); NEUT % 57.8 % (16.0-70.0); PLATELET COUNT 137 TH/MM3 (150-450); RED BLOOD COUNT 2.99 MIL/MM3 (4.00-5.30); RED CELL DISTRIBUTION WIDTH 15.4 % (11.6-17.2); WHITE BLOOD COUNT 3.2 TH/MM3 (4.0-11.0)
[2017-02-14 07:36] LABS: BICARBONATE 26.9 MEQ/L (21.0-32.0); POTASSIUM 3.4 MEQ/L (3.5-5.1)
[2017-02-14 08:00] VITALS: BP 129/75; PULSE 60; RESP 18; TEMP 97.9; O2SAT 97
[2017-02-14] MEDS ORDERED: POTASSIUM CHLORIDE 10 MEQ CONTROLLED RELEASE TAB PO ONE (09:15)
[2017-02-14] MEDS ORDERED: BACT800T5 PO (10:36)
--- NOTE | 2017-02-14 10:36 | HHI.DCPOC ---
Discharge Care Plan Diagnosis: (1) Acute pyelonephritis Goals to Promote Your Health * To prevent worsening of your condition and complications * To maintain your health at the optimal level Directions to Meet Your Goals Take your medications as prescribed Follow your dietary instruction Follow activity as directed Keep your appointments as scheduled Take your immunizations and boosters as scheduled If your symptoms worsen call your PCP, if no PCP go to Urgent Care Center or Emergency Room Smoking is Dangerous to Your Health. Avoid second hand smoke Call the 24-hour hour crisis hotline for domestic abuse at Fabian Medina MD R2 Feb 14, 2017 10:36
--- NOTE | 2017-02-14 10:48 | HHI.FPPN ---
Subjective Remarks Patient is doing well this morning. She is ready to go home. She denies fever , chills, nausea, vomiting, pain. Objective Vitals Vital Signs Date Time Temp Pulse Resp B/P Pulse Ox O2 Delivery O2 Flow Rate FiO2 02/14/17 08:00 97.9 60 18 129/75 97 02/14/17 03:53 97.8 66 16 122/72 100 02/14/17 00:00 98.2 76 16 115/57 95 02/13/17 20:00 98.4 114 16 117/61 100 02/13/17 16:49 99.7 83 16 117/79 98 02/13/17 12:00 97.1 52 115/87 100 I/O 02/13/17 02/13/17 02/13/17 02/14/17 02/14/17 02/14/17 07:00 15:00 23:00 07:00 15:00 23:00 Intake Total 1800 ml 840 ml 800 ml Output Total 1000 ml 1800 ml 2400 ml Balance 800 ml -960 ml -1600 ml Intake Oral 720 ml 840 ml 800 ml IV Total 1080 ml Output Urine Total 1000 ml 1800 ml 2400 ml # Voids 1 1 # Bowel Movements 0 0 0 1 Result Diagram: 02/14/1762402/14/17624 Objective Remarks GENERAL: This is a well-nourished, well-developed patient in no acute distress. SKIN: No rashes, ecchymoses or lesions. Warm and dry. HEAD: Atraumatic. Normocephalic. No temporal or scalp tenderness. EYES: Pupils equal round and reactive. Extraocular motions intact. No scleral icterus. No injection or drainage. ENT: Nose without bleeding, purulent drainage or septal hematoma. Throat without erythema, tonsillar hypertrophy or exudate. Uvula midline. Airway patent. NECK: Trachea midline. No JVD or lymphadenopathy. Supple, nontender, no meningeal signs. CARDIOVASCULAR: Regular rate and rhythm without murmurs, gallops, or rubs. RESPIRATORY: Clear to auscultation. Breath sounds equal bilaterally. No wheezes , rales, or rhonchi. GASTROINTESTINAL: Abdomen soft, non-tender. No hepato-splenomegaly, or palpable masses. No guarding. BACK: No CVA tenderness. MUSCULOSKELETAL: Extremities without clubbing, cyanosis, or edema. No joint tenderness, effusion, or edema noted. No calf tenderness. NEUROLOGICAL: Awake and alert. Cranial nerves II through XII intact. Motor and sensory grossly within normal limits. Five out of 5 muscle strength in all muscle groups. Normal speech. A/P Assessment and Plan Patient is a 41-year-old female presented septic with pyelonephritis. Treatment as below Discharge Planning Today Problem List: (1) Acute pyelonephritis Status: Acute Plan: Improving clinically Urine culture 02/11: Gram-positive; I spoke with microbiology lab and they say this is contaminated. We'll be unable to direct sensitivities Urine culture 02/09: Escherichia coli. Sensitivities Reviewed in the EMR. Blood culture 02/11: No growth to date Kidney ultrasound: Normal Antibiotics: Continue ceftriaxone daily while in hospital (started 02/11); discharged with 10 days of by mouth Bactrim Pain control: Percocet 10 mg every 6 hours pain 6-10, Percocet 5 mg pain 1-5; Dilaudid IV for breakthrough pain (2) Sepsis Status: Resolved Plan: see pyelonephritis above (3) Pancytopenia Status: Acute Plan: Likely secondary to infectious process. Patient was mildly pancytopenic prior to starting rocephin, so rocephin is likely not the culprit. Continue treatment as above. Repeat CBC in 1 week, to be followed by PCP Expect improvement with proper treatment of infection. (4) FEN/DVT PPX/GI PPX/Nursing Orders Status: Acute Plan: Fluids: Tolerating by mouth Electrolytes: Will monitor and replace as needed Nutrition: Regular adult diet, DVT Prophylaxis: Bilateral SCDs, Heparin 5000 units subcutaneous Q8h Fabian Medina MD R2 Feb 14, 2017 10:47
--- NOTE | 2017-02-14 10:52 | HHI.DS ---
Discharge Summary Admission Date Feb 11, 2017 at 10:04 Discharge Date: Feb 14, 2017 Admitting Diagnosis pyelonephritis (1) Acute pyelonephritis Diagnosis: Principal Plan: Improving clinically Urine culture 02/11: Gram-positive; I spoke with microbiology lab and they say this is contaminated. We'll be unable to direct sensitivities Urine culture 02/09: Escherichia coli. Sensitivities Reviewed in the EMR. Blood culture 02/11: No growth to date Kidney ultrasound: Normal Antibiotics: Continue ceftriaxone daily while in hospital (started 02/11); discharged with 10 days of by mouth Bactrim Pain control: Percocet 10 mg every 6 hours pain 6-10, Percocet 5 mg pain 1-5; Dilaudid IV for breakthrough pain (2) Sepsis Diagnosis: Principal Plan: see pyelonephritis above (3) Pancytopenia Diagnosis: Secondary Plan: Likely secondary to infectious process. Patient was mildly pancytopenic prior to starting rocephin, so rocephin is likely not the culprit. Continue treatment as above. Repeat CBC in 1 week, to be followed by PCP Expect improvement with proper treatment of infection. (4) FEN/DVT PPX/GI PPX/Nursing Orders Diagnosis: Secondary Plan: Fluids: Tolerating by mouth Electrolytes: Will monitor and replace as needed Nutrition: Regular adult diet, DVT Prophylaxis: Bilateral SCDs, Heparin 5000 units subcutaneous Q8h Brief History Patient is a 39-year-old female with a past medical history of bilateral knee arthritis that presents to the [place] ED with a chief complaints of fever, chills, nausea, vomiting, dysuria, back pain of one week duration. She [place] [facility] [place] where she was prescribed ciprofloxacin by mouth to complete a 14 day course. She took the medication as prescribed for 2 days but continued to have fever and chills and back pain,basically, she did not improve. Last night she could barely sleep and was vomiting and dry heaving all night. She also had increasing fever up to 102 F and worsened back pain, prompting her to present to the ED. CBC/BMP: 02/14/17 0625 02/14/17 0625 Significant Findings Laboratory Tests Test 02/12/17 02/13/17 02/14/17 05:13 03:32 06:25 White Blood Count 3.4 TH/MM3 3.0 TH/MM3 3.2 TH/MM3 (4.0-11.0) (4.0-11.0) (4.0-11.0) Red Blood Count 3.29 MIL/MM3 3.10 MIL/MM3 2.99 MIL/MM3 (4.00-5.30) (4.00-5.30) (4.00-5.30) Hemoglobin 8.8 GM/DL 8.4 GM/DL 8.2 GM/DL (11.6-15.3) (11.6-15.3) (11.6-15.3) Hematocrit 26.8 % 25.2 % 24.0 % (35.0-46.0) (35.0-46.0) (35.0-46.0) Mean Corpuscular Hemoglobin 26.8 PG (27.0-34.0) Platelet Count 113 TH/MM3 119 TH/MM3 137 TH/MM3 (150-450) (150-450) (150-450) Monocytes (%) (Auto) 11.1 % 10.6 % 10.5 % (0.0-8.0) (0.0-8.0) (0.0-8.0) Lymphocytes # (Auto) 0.7 TH/MM3 0.9 TH/MM3 0.9 TH/MM3 (1.0-4.8) (1.0-4.8) (1.0-4.8) Estimat Glomerular Filtration 82 ML/MIN (>89) 82 ML/MIN (>89) Rate Potassium Level 3.4 MEQ/L 3.4 MEQ/L (3.5-5.1) (3.5-5.1) Calcium Level 8.4 MG/DL 8.4 MG/DL (8.5-10.1) (8.5-10.1) Blood Urea Nitrogen 6 MG/DL (7-18) Imaging Last Impressions Renal Ultrasound 02/11/17 0000 Signed Impressions: Service Date/Time: Saturday, February 11, 2017 16:47 - CONCLUSION: Normal appearance of the kidneys. The spleen is enlarged. Alpesh Mcclelland MD PE at Discharge GENERAL: This is a well-nourished, well-developed patient in no acute distress. SKIN: No rashes, ecchymoses or lesions. Warm and dry. HEAD: Atraumatic. Normocephalic. No temporal or scalp tenderness. EYES: Pupils equal round and reactive. Extraocular motions intact. No scleral icterus. No injection or drainage. ENT: Nose without bleeding, purulent drainage or septal hematoma. Throat without erythema, tonsillar hypertrophy or exudate. Uvula midline. Airway patent. NECK: Trachea midline. No JVD or lymphadenopathy. Supple, nontender, no meningeal signs. CARDIOVASCULAR: Regular rate and rhythm without murmurs, gallops, or rubs. RESPIRATORY: Clear to auscultation. Breath sounds equal bilaterally. No wheezes , rales, or rhonchi. GASTROINTESTINAL: Abdomen soft, non-tender. No hepato-splenomegaly, or palpable masses. No guarding. BACK: No CVA tenderness. MUSCULOSKELETAL: Extremities without clubbing, cyanosis, or edema. No joint tenderness, effusion, or edema noted. No calf tenderness. NEUROLOGICAL: Awake and alert. Cranial nerves II through XII intact. Motor and sensory grossly within normal limits. Five out of 5 muscle strength in all muscle groups. Normal speech. Hospital Course Patient was started on IV fluids, Rocephin for sepsis with pyelonephritis as the source. Blood cultures showed no growth. The urine culture from her hospital stay was inconclusive as the patient had been on ciprofloxacin prior to hospitalization. However, urine cultures from the office on 02/09 grew Escherichia coli with susceptibilities in the EMR. On discharge, the patient had been afebrile for over 24 hours. She felt back to normal. She will be discharged on Bactrim twice a day for 10 days. The patient was found to be mildly pancytopenic and this was determined to be secondary to the infection. There was some improvement to her pancytopenia on discharge, however we would like to get a CBC 1 week after discharge to be followed by her PCP. If the patient remains pancytopenic despite proper antibiotic/infection treatment, she may benefit from further workup. Pt Condition on Discharge: Good Discharge Disposition: Discharge Home Discharge Instructions DIET: Follow Instructions for: As Tolerated, No Restrictions Activities you can perform: Regular-No Restrictions Follow up Referrals: PCP Follow-up - 10 Days New Orders: BASIC METABOLIC PROF - 1 Week CBC WITH DIFF - 1 Week New Medications: Sulfamethoxazole-Trimethoprim (Bactrim DS) 800-160 Mg Tab 1 TAB PO BID Infection #20 Ref 0 TAB Continued Medications: Ibuprofen (Ibuprofen) 600 Mg Tab 600 MG PO Q6H PRN Pain/Inflammation #40 Ref 3 TAB Lactobacillus Acidophilus (Probiotic) 1 Cap Cap 1 CAP PO DAILY Nutritional Supplement #30 Ref 0 CAP Discontinued Medications: Ciprofloxacin (Ciprofloxacin) 500 Mg Tab 500 MG PO BID Infection #28 Ref 0 TAB Fabian Medina MD R2 Feb 14, 2017 10:52
== END 2017-02-14 11:40 | disposition home or self-care (01) | DRG 872 ==
LOC: NEPE 06:20 → NEDA 10:04 → HOCB 11:47 → HOCA 02-12 20:54
PROVIDERS: ADMIT Family Medicine; ATTEND Family Medicine
DX: A41.9 Sepsis, unspecified organism (principal); D61.818 Other pancytopenia; N10 Acute pyelonephritis; B96.20 Unspecified Escherichia coli [E. coli] as the cause of diseases classified elsewhere; D64.9 Anemia, unspecified; M17.0 Bilateral primary osteoarthritis of knee; E66.01 Morbid (severe) obesity due to excess calories; Z68.35 Body mass index [BMI] 35.0-35.9, adult; Z98.84 Bariatric surgery status; Z87.891 Personal history of nicotine dependence
CPT/HCPCS: 76775; 80048; 80053; 81001; 83605; 83690; 84703; 85025; 87040; 87086; 96365; 96366; 96375; 96376; C9113; J0696; J1170; J1644; J1885; J2405; J7030

== ENCOUNTER 2018-01-08 09:26 | Emergency (ER) | payer OTHER ==
[~2018-01-08] VITALS: Ht 182.9 cm; Wt 115.0 kg
[~2018-01-08 09:26] MED LIST changes: +BACT800T5 PO; -CIPR500T2 PO; -NYST10007 TOPICAL
[2018-01-08 09:29] VITALS: BP 145/63; PULSE 56; RESP 19; TEMP 98; O2SAT 100
[2018-01-08] MEDS ORDERED: iron PO (09:47)
--- NOTE | 2018-01-08 10:08 | PD ---
HPI Chief Complaint: Related Problem Time Seen by Provider: 09:42 Travel History International Travel<30 days: No Contact w/Intl Traveler<30days: No Traveled to known affect area: No History of Present Illness HPI Is a 42-year-old woman who presents to the emergency department complaining of with bleeding. About 7 weeks . 3 para 2. She states that she had some spotting last night when she wiped. This morning there was no blood when she went to the bathroom she then had again more spotting on the toilet paper, cramping. She denied to go back to the bathroom passed large clots. She otherwise had been feeling generally well. Last menstrual periods November 20. She follows with Dr. Samuel. She called the office and could not get her in today so she was referred to the emergency department. Otherwise had been feeling generally well and healthy. No other complaints. History Past Medical History Narrative Medical Morbid obesity, lap band in 2006, gastric bypass in 2013 2 C-sections Rh- LMP: 11/20/17 : 3 Para: 2 Social History Alcohol Use: No Tobacco Use: No Allergies-Medications (Allergen,Severity, Reaction): Coded Allergies: No Known Allergies (Verified Adverse Reaction, Unknown, 01/08/18) Reported Meds & Prescriptions Reported Meds & Active Scripts Active Reported [iron] 325 Mg PO DAILY Review of Systems Except as stated in HPI: all other systems reviewed are Neg Physical Exam Narrative GENERAL: Well-appearing 6-year-old woman, no acute distress. SKIN: Focused skin assessment warm/dry. HEAD: Atraumatic. Normocephalic. EYES: Pupils equal and round. No scleral icterus. No injection or drainage. ENT: No nasal bleeding or discharge. Mucous membranes pink and moist. NECK: Trachea midline. No JVD. CARDIOVASCULAR: Regular rate and rhythm. No murmur appreciated. RESPIRATORY: No accessory muscle use. Clear to auscultation. Breath sounds equal bilaterally. GASTROINTESTINAL: Abdomen obese and soft. No tenderness. MUSCULOSKELETAL: No obvious deformities. PELVIC: Normal external female genitalia. Some dark red blood coming from the cervical eyes. No other lesion or abnormality. Cervix is closed bimanual exam. There is no palpable uterine enlargement or adnexal tenderness. Data Data Last Documented VS Vital Signs Date Time Temp Pulse Resp B/P (MAP) Pulse Ox O2 Delivery O2 Flow Rate FiO2 01/08/18 13:21 98.3 66 18 139/68 100 Orders Orders Beta Hcg (Quant/Titer) (01/08/18 09:43) Complete Blood Count With Diff (01/08/18 10:03) Rhogam Only (01/08/18 10:03) Iv Access Insert/Monitor (01/08/18 10:03) Us Pelvis (Ques Pr/Ect)W Trans (01/08/18 ) Labs Laboratory Tests Test 01/08/18 09:54 01/08/18 10:20 Human Chorionic Gonadotropin, Quant 1081 MIU/ML White Blood Count 7.0 TH/MM3 Red Blood Count 4.17 MIL/MM3 Hemoglobin 10.9 GM/DL Hematocrit 33.7 % Mean Corpuscular Volume 80.7 FL Mean Corpuscular Hemoglobin 26.1 PG Mean Corpuscular Hemoglobin Concent 32.3 % Red Cell Distribution Width 16.5 % Platelet Count 225 TH/MM3 Mean Platelet Volume 9.5 FL Neutrophils (%) (Auto) 64.0 % Lymphocytes (%) (Auto) 26.6 % Monocytes (%) (Auto) 4.4 % Eosinophils (%) (Auto) 4.0 % Basophils (%) (Auto) 1.0 % Neutrophils # (Auto) 4.5 TH/MM3 Lymphocytes # (Auto) 1.9 TH/MM3 Monocytes # (Auto) 0.3 TH/MM3 Eosinophils # (Auto) 0.3 TH/MM3 Basophils # (Auto) 0.1 TH/MM3 CBC Comment DIFF FINAL Differential Comment MDM Medical Decision Making Medical Screen Exam Complete: Yes Emergency Medical Condition: Yes Interpretation(s) LABS: CBC is remarkable for mild anemia. HCG Ultrasound: Empty uterus Differential Diagnosis Threatened AB, miscarriage, subchorionic hematoma, ectopic, other Narrative Course Medical decision making This is a 42-year-old woman presents to the emergency department complaining of spotting and cramping in early . She is 42 years old. Her third . Will check labs. She is known Rh-, will give RhoGam. Will check bedside ultrasound and pelvic exam. FINAL: HCG low, empty uterus on ultrasound, bleeding and cramping. Differential diagnosis includes threatened AB versus complete AB versus ectopic versus early IUP. 48 hour follow-up. 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 Return emerged department sooner for any worsening abdominal pain, heavy bleeding, or any other new or worsening symptoms. Med/Other Pt SpecificInfo: No Change to Meds Disposition: 01 DISCHARGE HOME Condition: Stable Garret Graff MD January 08, 2018 10:08
[2018-01-08 10:33] LABS: AUTOMATED NEUTROPHIL # 4.5 TH/MM3 (1.8-7.7); BASOPHIL # 0.1 TH/MM3 (0-0.2); EOSINOPHIL # 0.3 TH/MM3 (0-0.4); HEMATOCRIT 33.7 % (35.0-46.0); HEMOGLOBIN 10.9 GM/DL (11.6-15.3); LYMPH % 26.6 % (9.0-44.0); LYMPHOCYTE # 1.9 TH/MM3 (1.0-4.8); MEAN CELL VOLUME 80.7 FL (80.0-100.0); MEAN CORPUSCULAR HEMOGLOBIN 26.1 PG (27.0-34.0); MEAN CORPUSCULAR HGB CONC 32.3 % (32.0-36.0); MEAN PLATELET VOLUME 9.5 FL (7.0-11.0); MONO % 4.4 % (0.0-8.0); MONOCYTE # 0.3 TH/MM3 (0-0.9); PLATELET COUNT 225 TH/MM3 (150-450); RED BLOOD COUNT 4.17 MIL/MM3 (4.00-5.30); RED CELL DISTRIBUTION WIDTH 16.5 % (11.6-17.2)
[2018-01-08 13:21] VITALS: BP 139/68; PULSE 66; RESP 18; TEMP 98.3; O2SAT 100
--- NOTE | 2018-01-08 14:01 | RADRPT ---
EXAM DATE: 01/08/2018 12:05 PM EDT AGE/SEX: 42 years / Female INDICATIONS: Vaginal bleeding with . CLINICAL DATA: This is the patient's initial encounter. Patient reports that signs and symptoms have been present for 1 day and indicates a pain score of 0/10. MEDICAL/SURGICAL HISTORY: . Migraines. section. Lap band. Gastric bypass. Dilation & curettage. COMPARISON: No prior [facility] exams available for comparison. MEASUREMENTS: Uterus:__8.7 x 5.2 x 4.5 cm Endometrial Stripe:__11 mm Right Ovary:__ 2.9 x 2.5 x 2.2 cm Left Ovary:__ 2.6 x 3.9 x 1.9 cm FINDINGS: Uterus: The myometrium has homogeneous echotexture without mass. Nabothian cysts are present. There is a section scar at the anterior lower uterine segment. No gestational sac is identified. Right Ovary: No cyst or concerning mass is identified. Left Ovary: There is a mildly thick walled crenulated cystic lesion in the left ovary measuring appr oximately 1.9 cm. It appears to be located within the ovary. No other concerning lesion is seen. Other: There is trace free fluid in the pelvis. CONCLUSION: 1. of unknown location. No gestational sac is identified within the uterus. Therefore, thi s could be an early intrauterine but ectopic cannot be excluded. Suggest follow-u p imaging and clinical follow-up, as needed, to confirm appropriate progression of . 2. Complex cystic lesion in the left ovary. The appearance favors a corpus luteal cyst but suggest a ttention to this on follow-up imaging. Electronically signed by: Alpesh Canchola MD 01/08/2018 2:00 PM EDT
[2018-01-09] MEDS ORDERED: FERR325T18 PO (10:28)
== END 2018-01-08 14:18 | disposition home or self-care (01) ==
LOC: NEPC 09:26
DX: O20.0 Threatened abortion (principal); O09.521 Supervision of elderly multigravida, first trimester; Z3A.01 Less than 8 weeks gestation of pregnancy
CPT/HCPCS: 76700; 76817; 84702; 85025; 90384; 96372; J2790

== ENCOUNTER 2018-01-10 08:51 | Emergency (ER) | payer OTHER ==
[~2018-01-10] VITALS: Ht 182.9 cm; Wt 115.0 kg
[~2018-01-10 08:51] MED LIST changes: -BACT800T5 PO; +FERR325T18 PO; -IBUP-232 PO; -LACTCAP8 PO
[2018-01-10 08:58] VITALS: BP 125/62; PULSE 66; RESP 14; TEMP 99.2; O2SAT 100
--- NOTE | 2018-01-10 09:24 | PD ---
HPI Chief Complaint: Related Problem Time Seen by Provider: 09:06 Travel History International Travel<30 days: No Contact w/Intl Traveler<30days: No Traveled to known affect area: No History of Present Illness HPI Patient presents to the emergency department for repeat beta hCG and assessment. She was seen on Sunday secondary to vaginal bleeding with . Beta hCG was elevated however ultrasound showed empty uterus. This is the patient's third , and she denies any previous or history of STD. She has not had sexual intercourse since her ER visit on Sunday. She denies abdominal pain and states that the vaginal bleeding has decreased as she only notices blood with wiping. She denies fever, chills, nausea, vomiting, dysuria, vaginal discharge besides bleeding. Last menstrual period was November 20. She is O- and was given RhoGam on Sunday. Patient's OB physician is Dr. Garret Samuel, she has a follow-up appointment on January 21. She called the office and was advised that he was out of town this week. PFSH Past Medical History Cancer: No Cardiovascular Problems: No Diabetes: No Diminished Hearing: No Endocrine: No Glaucoma: No Genitourinary: No Hepatitis: No Hiatal Hernia: No Hypertension: No Immune Disorder: No Musculoskeletal: Yes (ARTHRITIS ABIOLA KNEES) Neurologic: Yes (OCCAS MIGRAINE HEADACHES) Psychiatric: No Reproductive: No Respiratory: No Thyroid Disease: No ?: LMP: 11/20/17 : 3 Para: 2 Past Surgical History Abdominal Surgery: Yes (LAP BAND SX 2006 / GASTRIC BYPASS) AICD: No Body Medical Devices: LAP BAND Cardiac Surgery: No Section: Yes (x 2) Ear Surgery: No Endocrine Surgery: No Eye Surgery: No Genitourinary Surgery: No Gynecologic Surgery: Yes (C SECTION X2; D & C X 3 2007, , ) Joint Replacement: No Oral Surgery: No Pacemaker: No Thoracic Surgery: No Other Surgery: Yes (D & C x 3) Social History Alcohol Use: No Tobacco Use: No Substance Use: No Allergies-Medications (Allergen,Severity, Reaction): Coded Allergies: No Known Allergies (Verified Adverse Reaction, Unknown, 01/10/18) Reported Meds & Prescriptions Reported Meds & Active Scripts Active Reported Ferrous Sulfate 325 Mg (65 Mg Iron) Tablet 325 Mg PO DAILY Review of Systems Except as stated in HPI: all other systems reviewed are Neg Physical Exam Narrative GENERAL: No acute distress. SKIN: Focused skin assessment warm/dry. HEAD: Atraumatic. Normocephalic. EYES: Extraocular muscles intact bilaterally. No scleral icterus. No injection or drainage. ENT: No nasal bleeding or discharge. Mucous membranes pink and moist. NECK: Trachea midline. No JVD. CARDIOVASCULAR: Regular rate and rhythm. No murmur appreciated. RESPIRATORY: No accessory muscle use. Clear to auscultation. Breath sounds equal bilaterally. GASTROINTESTINAL: Abdomen soft, non-tender, obese. MUSCULOSKELETAL: No obvious deformities. No clubbing. No cyanosis. No edema. NEUROLOGICAL: Awake and alert. No obvious cranial nerve deficits. Motor grossly within normal limits. Normal speech. PSYCHIATRIC: Appropriate mood and affect; insight and judgment normal. Pelvic: Os is closed by bimanual exam, no vaginal or cervical lesions, + vaginal bleeding Data Data Last Documented VS Vital Signs Date Time Temp Pulse Resp B/P (MAP) Pulse Ox O2 Delivery O2 Flow Rate FiO2 01/10/18 08:58 99.2 66 14 125/62 (83) 100 Orders Orders Beta Hcg (Quant/Titer) (01/10/18 09:17) Complete Blood Count With Diff (01/10/18 09:17) Us Pelvis (Ques Pr/Ect)W Trans (01/10/18 ) Labs Laboratory Tests Test 01/10/18 09:30 White Blood Count 5.2 TH/MM3 Red Blood Count 4.30 MIL/MM3 Hemoglobin 11.3 GM/DL Hematocrit 34.9 % Mean Corpuscular Volume 81.2 FL Mean Corpuscular Hemoglobin 26.3 PG Mean Corpuscular Hemoglobin Concent 32.4 % Red Cell Distribution Width 17.2 % Platelet Count 243 TH/MM3 Mean Platelet Volume 9.7 FL Neutrophils (%) (Auto) 57.0 % Lymphocytes (%) (Auto) 31.4 % Monocytes (%) (Auto) 5.3 % Eosinophils (%) (Auto) 5.2 % Basophils (%) (Auto) 1.1 % Neutrophils # (Auto) 2.9 TH/MM3 Lymphocytes # (Auto) 1.6 TH/MM3 Monocytes # (Auto) 0.3 TH/MM3 Eosinophils # (Auto) 0.3 TH/MM3 Basophils # (Auto) 0.1 TH/MM3 CBC Comment DIFF FINAL Differential Comment Human Chorionic Gonadotropin, Quant 302 MIU/ML MDM Medical Decision Making Medical Screen Exam Complete: Yes Emergency Medical Condition: Yes Interpretation(s) CBC: Hemoglobin and hematocrit slightly decreased but increased from prior; beta hCG 302, was 1081 previously. Ultrasound FINDINGS: Uterus: No intrauterine is visualized. There is a hypoechoic area in the endometrium measuring up to 7 x 1.7 x 0.5 cm. There are multiple complex cystic lesions in the cervical region the largest measure up to 12 and 11 mm. Right Ovary: Normal in size, shape and echogenicity. Left Ovary: More prominent than the right with multiple small follicular cysts as well as complex hypoechoic area measuring 1.6 x 1.5 x 1.3 cm. Other: Normal amount of free fluid in posterior cul-de-sac. CONCLUSION: 1. No intrauterine visualized. There is a hypoechoic area in the endometrium which is nonspecific and could represent fluid or hemorrhage. This study does not exclude ectopic . 2. Complex hypoechoic area again noted in the left ovary which is nonspecific could represent a complex corpus luteal cyst. 9 small amount of free fluid in the cul-de-sac. Differential Diagnosis IUP, ectopic , threatened AB, inevitable AB, Narrative Course Patient presents to the emergency department for repeat beta hCG secondary to and vaginal bleeding. Will check CBC, beta hCG, and repeat ultrasound. Physician Communication Physician Communication [id number]: Spoke to Dr. Alva, who works with Dr. Samuel as he is out today. She reviewed the ultrasound. Doesn't think it'sa n ectopic, probable AB. patient has an appt with them today at 2:45. Advised to encourage patient to come to their office for appointment today. Diagnosis Primary Impression: Miscarriage, threatened, early Patient Instructions: General Instructions, Miscarriage (ED) Additional Instructions: 1. Followup with [facility] appointment today at 2:45. 2. return to ER immediately for fever, vomiting, increase vaginal bleeding, abdominal pain, or for any new/ worrisome/worsening symptoms. Disposition: 01 DISCHARGE HOME Condition: Stable Jie Nice MD January 10, 2018 09:24
[2018-01-10 09:49] LABS: AUTOMATED NEUTROPHIL # 2.9 TH/MM3 (1.8-7.7); BASOPHIL # 0.1 TH/MM3 (0-0.2); BASOPHIL % 1.1 % (0.0-2.0); EOSINOPHIL # 0.3 TH/MM3 (0-0.4); EOSINOPHIL % 5.2 % (0.0-4.0); HEMATOCRIT 34.9 % (35.0-46.0); HEMOGLOBIN 11.3 GM/DL (11.6-15.3); LYMPH % 31.4 % (9.0-44.0); LYMPHOCYTE # 1.6 TH/MM3 (1.0-4.8); MEAN CELL VOLUME 81.2 FL (80.0-100.0); MEAN CORPUSCULAR HEMOGLOBIN 26.3 PG (27.0-34.0); MEAN CORPUSCULAR HGB CONC 32.4 % (32.0-36.0); MEAN PLATELET VOLUME 9.7 FL (7.0-11.0); MONO % 5.3 % (0.0-8.0); MONOCYTE # 0.3 TH/MM3 (0-0.9); PLATELET COUNT 243 TH/MM3 (150-450); RED CELL DISTRIBUTION WIDTH 17.2 % (11.6-17.2); WHITE BLOOD COUNT 5.2 TH/MM3 (4.0-11.0)
--- NOTE | 2018-01-10 11:05 | RADRPT ---
EXAM DATE: 01/10/2018 10:56 AM EDT AGE/SEX: 42 years / Female INDICATIONS: Pelvic spotting. Beta-hCG level of 302. Joints was seen 2 days ago with a beta-hCG of 1 081. CLINICAL DATA: This is the patient's subsequent encounter. Patient reports that signs and symptoms h ave been present for 3 days and indicates a pain score of 0/10. MEDICAL/SURGICAL HISTORY: . Migraines. section. Lap band. Gastric bypass. D&C. COMPARISON: [facility] [place], US PELVIS (QUEST PRE G/ECTOPIC) W/TRANS VAG, 01/08/2018. . No external comparis on. MEASUREMENTS: Uterus:__8.4 x 4.8 x 4.2 cm Endometrial Stripe:__9 mm Right Ovary:__ 2.3 x 2.2 x 2.4 cm Left Ovary:__ 2.1 x 2.4 x 3.3 cm FINDINGS: Uterus: No intrauterine is visualized. There is a hypoechoic area in the endometrium measu ring up to 7 x 1.7 x 0.5 cm. There are multiple complex cystic lesions in the cervical region the lar gest measure up to 12 and 11 mm. Right Ovary: Normal in size, shape and echogenicity. Left Ovary: More prominent than the right with multiple small follicular cysts as well as complex hy poechoic area measuring 1.6 x 1.5 x 1.3 cm. Other: Normal amount of free fluid in posterior cul-de-sac. CONCLUSION: 1. No intrauterine visualized. There is a hypoechoic area in the endometrium which is nons pecific and could represent fluid or hemorrhage. This study does not exclude ectopic . 2. Complex hypoechoic area again noted in the left ovary which is nonspecific could represent a comp sam corpus luteal cyst. 9 small amount of free fluid in the cul-de-sac. Electronically signed by: Connor Faulkner MD 01/10/2018 11:04 AM EDT
== END 2018-01-10 12:11 | disposition home or self-care (01) ==
LOC: NEPD 08:51
DX: O20.0 Threatened abortion (principal); Z3A.00 Weeks of gestation of pregnancy not specified
CPT/HCPCS: 76700; 76817; 84702; 85025

== ENCOUNTER 2018-03-28 07:46 | Observation (INO) ==
[2018-03-28] MEDS ORDERED: ceFAZolin 2 GM Premix Inj 2 GM/100 ML BAG IV.SIG ONE (08:20)
[2018-03-28] MEDS ORDERED: Metoprolol Tartrate 25 MG Tablet PO SCH (08:45)
[2018-03-28] MEDS ORDERED: Chlorhexidine Gluconate 2% 1 Pack (2 Cloths) TOPICAL SCH (08:45)
[2018-03-28] MEDS ORDERED: Sodium Chlor 0.9% Inj 500 ML IV.SIG SCH (09:00)
[2018-03-28] MEDS ORDERED: ceFAZolin 2 GM/NS 100 ML IV; Q8H IV.SIG SCH ×2 (09:00)
[2018-03-28] MEDS ORDERED: Bupivacaine/Epinephrine Inj 0.25% 50 ML Vial ONE (09:46)
[2018-03-28] MEDS ORDERED: fentaNYL Citrate Inj 250 MCG/5 ML Ampul ONE (10:06)
[2018-03-28] MEDS ORDERED: Lidocaine PF 1% Inj 5 ML Syringe INFILTRATN ONE (12:00)
[2018-03-28] MEDS ORDERED: Sugammadex Inj 200 MG/2 ML Vial IV.PUSH ONE (12:13)
[2018-03-28] MEDS ORDERED: fentaNYL Citrate Inj 100 MCG/2 ML Ampul ONE (13:30)
[2018-03-28] MEDS ORDERED: *Meperidine Inj 25 MG/ML Vial PERIprocedural Use ONLY ONE (13:38)
[2018-03-28] MEDS ORDERED: *Ondansetron Inj 4 MG/2 ML Vial PERIprocedural Use ONLY ONE (13:38)
[2018-03-28] MEDS ORDERED: *morphine SULFATE 10 MG/ML PERIprocedure ONLY ONE (15:04)
[2018-03-28] MEDS ORDERED: Dimethicone/Oxybenzone-Padimate Lip Balm 4.25 GM Tube TOPICAL ONE (15:21)
--- NOTE | 2018-03-28 16:23 | P.CON ---
History of Present Illness Consult date: 03/28/18 Requesting Physician: Curtis Bains Reason for Consult: Medical Management Primary Care Provider: No Primary Care Physician Family Provider: No Primary Care Physician Chief Complaint: Status post Reconstructive Plastic Surgery History of Present Illness: This is a pleasant 42 y/o Female who has Morbid Obesity, status post Lap Band 10 years ago, Gastric bypass surgery 3 years ago, she states has lost 250 Pounds since the surgery, but at this time due to her Pannus she developed recurrent panniculitis, was seen by Plastic surgery and scheduled for Panniculectomy performed today she is in Recovery room, discussed with her and with nurse. Review of Systems All other systems reviewed negative except as stated in HPI PMFSH - History History Provided By: Patient - Medical History Medical History: Medical History (Last Updated 03/27/18 @ 09:30 by Demi Grayson RN) Achilles tendinitis of both lower extremities Anemia Arthritis History of anesthesia reaction History of menorrhagia History of thyroid nodule Hx of lower gastrointestinal bleeding Hx of pyelonephritis Migraine Obesity - Surgical History Surgical History: Surgical History (Last Updated 03/27/18 @ 09:28 by Demi Grayson RN) History of History of removal of laparoscopic gastric banding device Hx of dilation and curettage Hx of gastric bypass Hx of hemorrhoidectomy Hx of laparoscopic adjustable gastric banding - Family History Family History: Family History (Last Updated 03/28/18 @ 16:17 by Josafat Powell MD) Mother Ovarian cancer Other Family history of cancer - Tobacco History Second Hand Smoke Exposure: Yes Tobacco Use In Past 30 Days: Yes Smoking Status: Current every day smoker Tobacco Type: Cigarettes - Alcohol History How Often Do You Have a Drink Containing Alcohol: Monthly or less - Substance Use History Substance History: No History of Abuse - Travel History Recent Travel in the [place] Within the Last 8 Weeks: No Recent Travel Out of the Country Within the Last 8 Weeks: No Medications and Allergies Active Medications: Active Medications Hydrocodone Bitart/Acetaminophen ([place] 5/325) 2 tab PO Q4H PRN PRN Reason: PAIN 1-10 Chlorhexidine Gluconate (Chlorhexidine 2% Cloth) 3 pack TOPICAL DAMAGE [facility]ION [facility] Stop: 03/31/18 08:40 Last Admin: 03/28/18 08:30 Dose: 3 pack Enoxaparin Sodium (Lovenox Inj) 40 mg SQ Q24H [facility] Lactated Ringer's (Lr 1000 Ml Inj) 1,000 mls @ 30 mls/hr IV.SIG .Q24H [facility] Stop: 03/31/18 08:40 Last Admin: 03/28/18 09:02 Dose: 30 mls/hr Sodium Chloride (Ns Inj) 500 mls @ 30 mls/hr IV.SIG .Q10H [facility] Stop: 03/31/18 08:40 Cefazolin/Sodium Chloride (Ancef 2 Gm Premix Inj) 2 gm in 100 mls @ 200 mls/hr IV.SIG Q8H [facility] Stop: 03/29/18 02:29 Cefazolin Sodium 2,000 mg/ (Sodium Chloride) 100 mls @ 200 mls/hr IV.SIG Q8H [facility] Stop: 03/29/18 02:29 Metoprolol Tartrate (Lopressor) 25 mg PO DAMAGE PRE[facility]ION [facility] Stop: 03/31/18 08:40 Miscellaneous Information ([facility] [place] Nursing Information) 1 each OTHER UNSCH PRN PRN Reason: SEE LABEL COMMENTS Stop: 03/29/18 14:25 Morphine Sulfate (Morphine Inj) 2 mg IV.PUSH Q3H PRN PRN Reason: BREAKTHROUGH PAIN Ondansetron HCl (Zofran Inj) 4 mg IV.PUSH Q6H PRN PRN Reason: NAUSEA Povidone Iodine (Betadine 5% Antisepsis Kit) 1 applicatio EACH NARE DAMAGE PRE[facility]ION [facility] Stop: 03/31/18 08:40 Last Admin: 03/28/18 08:45 Dose: 1 applicatio Allergies Allergy/AdvReac Type Severity Reaction Status Date / Time No Known Allergies Allergy Unverified 03/27/18 09:23 Home Medications Medication Instructions Recorded Confirmed Type bisacodyl [Dulcolax (bisacodyl)] 20 mg PO DAILY 03/27/18 03/28/18 History ferrous sulfate 325 mg PO DAILY 03/27/18 03/28/18 History Physical Exam Vital signs: Vital Signs 03/28/18 08:22 03/28/18 13:21 03/28/18 13:30 Temperature 97.9 F 98.1 F Pulse Rate 57 L 82 76 Respiratory Rate 16 15 16 Blood Pressure 119/61 110/54 L 115/56 L Pulse Oximetry 100 98 97 03/28/18 13:45 03/28/18 14:00 03/28/18 14:15 Temperature Pulse Rate 68 63 63 Respiratory Rate 16 17 18 Blood Pressure 104/54 L 107/55 L 107/55 L Pulse Oximetry 98 98 98 03/28/18 14:17 03/28/18 14:30 03/28/18 15:00 Temperature Pulse Rate 63 62 Respiratory Rate 18 19 Blood Pressure 104/55 L 105/51 L Pulse Oximetry 98 98 98 03/28/18 15:30 03/28/18 15:59 Temperature 98 F Pulse Rate 59 L 61 Respiratory Rate 17 20 Blood Pressure 103/52 L 101/54 L Pulse Oximetry 98 98 Intake & Output 03/27/18 03/28/18 03/28/18 18:59 06:59 18:59 Intake Total 100 / 100 Balance 100 / 100 Weight 119.5 kg Intake: IV 100 / 100 Ancef Inj 2,000 MG In NS Inj 80 100 / 100 ML @ 200 mls/hr IV.SIG DAMAGE [facility] Rx#:[id number] Other: Weight On Admission 119.5 kg Narrative: GENERAL: No acute distress. Morbid obese patient SKIN: Focused skin assessment warm/dry. HEAD: Atraumatic. Normocephalic. EYES: Extraocular muscles intact bilaterally. No scleral icterus. No injection or drainage. ENT: No nasal bleeding or discharge. Mucous membranes pink and moist. NECK: Trachea midline. No JVD. CARDIOVASCULAR: Regular rate and rhythm. No murmur appreciated. RESPIRATORY: No accessory muscle use. Clear to auscultation. Breath sounds equal bilaterally. GASTROINTESTINAL: Abdomen soft, binder on abdomen with two JALEN draining. MUSCULOSKELETAL: No obvious deformities. No clubbing. No cyanosis. No edema. NEUROLOGICAL: Awake and alert. No obvious cranial nerve deficits. Motor grossly within normal limits. Normal speech. PSYCHIATRIC: Appropriate mood and affect; insight and judgment normal. Assessment and Plan - Plan 1. Patient status post Panniculectomy performed today 03/28/18 inclusion specialist Doctor Curtis Bains following, continue Pain medicine, early ambulation , following specialist recommendations for post Op. 2. OA of bilateral knees stable 3. chronic low back pain at this time no pain. 4. Morbid Obesity status post Gastric Bypass surgery stable 5. Anemia secondary to Iron deficiency she takes Iron by mouth DVT prophylaxis with SCDs. at this time patient stable, continue present care. following from Hospitalist group already recommended for discharge in am tomorrow. Code Status: full code Discussed Condition With: Patient and nurse at Recovery room. Discharge Planning: as per Attending physician.
[2018-03-28] MEDS: Morphine Inj 4 MG/ML Vial IV.PUSH PRN ×2 (17:04→21:18)
[2018-03-28] MEDS ORDERED: ceFAZolin 2 GM Premix Inj 2 GM/100 ML BAG IV.SIG SCH (18:00)
[2018-03-28] MEDS: ceFAZolin Inj 2,000 MG in Sodium Chlor 0.9% Inj 80 ML IV.SIG SCH (18:11)
[2018-03-28] MEDS ORDERED: Enoxaparin Inj 40 MG/0.4 ML Syringe SQ SCH (21:00)
[2018-03-29] MEDS: Morphine Inj 4 MG/ML Vial IV.PUSH PRN (00:44)
[2018-03-29] MEDS: ceFAZolin Inj 2,000 MG in Sodium Chlor 0.9% Inj 80 ML IV.SIG SCH (02:00)
[2018-03-29 08:17] VITALS: RESP 18
[2018-03-29] MEDS ORDERED: Ferrous Sulfate 325 MG Tablet PO SCH (09:00)
[2018-03-29 12:19] VITALS: BP 97/53; PULSE 58; TEMP 98.1; O2SAT 95
[2018-03-29 12:21] LABS: Hematocrit 32.8 % (35.0-46.0); Hemoglobin 10.9 gm/dL (11.6-15.3); Mean Corpuscular HGB Conc 33.2 % (32.0-36.0); Mean Corpuscular Hemoglobin 29.7 pg (27.0-34.0); Mean Corpuscular Volume 89.4 fL (80.0-100.0); Mean Platelet Volume 10.3 fL (7.0-11.0); Platelet Count 182 th/mm3 (150-450); Red Blood Count 3.66 mil/mm3 (4.00-5.30); Red Cell Distribution Width 17.1 % (11.6-17.2); White Blood Count 9.3 th/mm3 (4.0-11.0)
[2018-03-29 12:43] LABS: Calcium 9.3 mg/dL (8.5-10.1); Carbon Dioxide 28.5 meq/L (21.0-32.0); Potassium 3.7 meq/L (3.5-5.1)
--- NOTE | 2018-03-29 14:22 | P.DS ---
Date of admission: 03/28/18 14:16 Primary care physician: No Primary Care Physician Attending physician on discharge: Josafat Powell Anticipated date of discharge: 03/29/18 Brief History from admission: This is a pleasant 42 y/o Female who has Morbid Obesity, status post Lap Band 10 years ago, Gastric bypass surgery 3 years ago, she states has lost 250 Pounds since the surgery, but at this time due to her Pannus she developed recurrent panniculitis, was seen by Plastic surgery and scheduled for Panniculectomy performed today she is in Recovery room, discussed with her and with nurse. DS: Diagnosis - Discharge Diagnosis (1) Panniculitis Status: Acute DS: Medications - Discharge Medications Prescriptions: hydrocodone-acetaminophen 1 tab PO Q4H PRN 3 Days #14 tab PRN Reason: PAIN 1-10 DS: Summary Hospital Course: This is a pleasant 42 y/o Female who has Morbid Obesity, status post Lap Band 10 years ago, Gastric bypass surgery 3 years ago, she states has lost 250 Pounds since the surgery, but at this time due to her Pannus she developed recurrent panniculitis, was seen by Plastic surgery and scheduled for Panniculectomy performed today she is in Recovery room, discussed with her and with nurse. 03/29: Seen in her bedroom, stable okay to discharge from Plastic surgery, recommended to follow as outpatient she will go home now. no nausea, vomit or diarrhea. Assessment and Plan - Plan 1. Patient status post Panniculectomy performed today 03/28/18 provider education specialist Doctor Curtis Bains following, continue Pain medicine, early ambulation , following specialist recommendations for post Op. patient seen by specialist today and recommended for discharge follow in his office. has two drains and will go with them as outpatient. for the next two weeks. 2. OA of bilateral knees stable 3. chronic low back pain at this time no pain. 4. Morbid Obesity status post Gastric Bypass surgery stable 5. Anemia secondary to Iron deficiency she takes Iron by mouth DVT prophylaxis with SCDs. Code Status: Full Code. Discussed Condition With: Patient and nurse. Discharge Planning: Discharge Home now. - Time Spent with Patient Total time spent providing and/or coordinating discharge services: Less than 30 minutes - Quality: VTE Deep Vein Thrombosis/Pulmonary Embolism Present on Admission: No Exam Vital signs: Vital Signs 03/28/18 14:30 03/28/18 15:00 03/28/18 15:30 Temperature Pulse Rate 63 62 59 L Respiratory Rate 18 19 17 Blood Pressure 104/55 L 105/51 L 103/52 L Pulse Oximetry 98 98 98 03/28/18 15:45 03/28/18 15:59 03/28/18 16:20 Temperature 98 F 97.7 F Pulse Rate 61 59 L Respiratory Rate 20 14 Blood Pressure 101/54 L 115/56 L Pulse Oximetry 99 98 97 03/28/18 20:00 03/29/18 00:00 03/29/18 01:09 Temperature 98.2 F 97.1 F L Pulse Rate 60 51 L Respiratory Rate 20 20 Blood Pressure 99/57 L 92/56 L 100/60 Pulse Oximetry 97 98 03/29/18 04:00 03/29/18 08:00 03/29/18 12:00 Temperature 97.1 F L 98.5 F 98.1 F Pulse Rate 70 59 L 58 L Respiratory Rate 18 18 Blood Pressure 107/51 L 100/56 L 97/53 L Pulse Oximetry 100 100 95 Intake & Output 03/28/18 03/29/18 03/29/18 18:59 06:59 18:59 Intake Total 1600 / 1600 680 / 680 Output Total 100 / 100 Balance 1500 / 1500 680 / 680 Weight 119.5 kg Intake: IV 1200 / 1200 100 / 100 LR 1000 mL Inj 1,000 ML @ 30 1000 / 1000 mls/hr IV.SIG .Q24H [facility] Rx#: [id number] Ancef Inj 2,000 MG In NS Inj 80 200 / 200 100 / 100 ML @ 200 mls/hr IV.SIG Q8H [facility] Rx#:[id number] Oral 580 / 580 Anesthesia Amount 400 / 400 Output: Estimated Blood Loss 100 / 100 Other: # Voids 5 Weight On Admission 119.5 kg Narrative: GENERAL: No acute distress. Morbid obese patient SKIN: Focused skin assessment warm/dry. HEAD: Atraumatic. Normocephalic. EYES: Extraocular muscles intact bilaterally. No scleral icterus. No injection or drainage. ENT: No nasal bleeding or discharge. Mucous membranes pink and moist. NECK: Trachea midline. No JVD. CARDIOVASCULAR: Regular rate and rhythm. No murmur appreciated. RESPIRATORY: No accessory muscle use. Clear to auscultation. Breath sounds equal bilaterally. GASTROINTESTINAL: Abdomen soft, binder on abdomen with two JALEN draining. MUSCULOSKELETAL: No obvious deformities. No clubbing. No cyanosis. No edema. NEUROLOGICAL: Awake and alert. No obvious cranial nerve deficits. Motor grossly within normal limits. Normal speech. PSYCHIATRIC: Appropriate mood and affect; insight and judgment normal. Results Procedures completed during hospitalization: PANNICULECTOMY Labs on day of discharge: Labs from last 24 hours 03/29/18 03/29/18 11:45 11:45 WBC 9.3 RBC 3.66 L Hgb 10.9 L Hct 32.8 L MCV 89.4 MCH 29.7 MCHC 33.2 RDW 17.1 Plt Count 182 MPV 10.3 Sodium 140 Potassium 3.7 Chloride 106 Carbon Dioxide 28.5 Anion Gap 6 BUN 12 Creatinine 0.90 Estimated GFR 69 L Random Glucose 119 H Calcium 9.3 Discharge Plan - Discharge Disposition Patient Disposition: 01 Discharge Home - Discharge Condition Condition: Good - Discharge Order Discharge Orders: Discharge Order (Routine); Ordered 03/29/18 Ordered By: Josafat Powell - Discharge Details Anticipated Discharge Date: 03/29/18 - Physicians Team Primary Care Provider: Primary Care Hoda Rosa Attending Provider: Josafat Powell Other Providers: Josafat Powell MD ; Curtis Bains MD - Rxs /Orders / Referrals /Forms Prescriptions: New hydrocodone-acetaminophen 5-325 mg Tablet 1 tab PO Q4H PRN (Reason: PAIN 1-10) 3 Days Qty: 14 RF: 0 Continue ferrous sulfate 325 mg (65 mg iron) Tablet 325 mg PO DAILY No Action bisacodyl [Dulcolax (bisacodyl)] 5 mg Tablet,Delayed Release (Dr/Ec) 20 mg PO DAILY Referrals: Primary Care Hoda Rosa [Primary Care Provider] - See Instructions - Discharge Instructions Patient Printed Instructions: Abdominoplasty (DC)
--- NOTE | 2018-04-16 15:45 | P.OP ---
Date of procedure: 03/28/18 Procedure: Panniculectomy ([id number]) Surgeon: Curtis Bains MD Operation and Findings: 42-year-old female who presents with recurrent intertrigo, requesting panniculectomy. Risks benefits alternative treatments discussed. All questions answered and the patient expressed understanding. Patient elected to assume the risks of panniculectomy. Informed consent obtained. The patient was given antibiotics on-call to the operating room. The patient was marked in the preoperative holding bay. The patient was taken to the operating room and all pressure points were padded. A surgical timeout was performed. After the smooth induction of general anesthesia, the surgical site was instilled with quarter percent Marcaine with epinephrine. The surgical site was prepped and draped in usual sterile fashion. The inferior aspect of the incision was made. Dissection was carried down to the rectus fascia. The dissection was then continued superiorly maintaining a layer of sub-Ricci fat over the rectus fascia. After the undermining reached the superior aspect of the markings, the superior incision was made. Following excision of the specimen, which weighed 2.6 kg in total, the surgical site was copiously irrigated. Hemostasis was ensured. 219 [place] Jermaine drains were brought out lateral to the incision bilaterally. Ricci's fascia was reapproximated with multiple interrupted 3-0 PDS. Following this, deep dermis was closed with multiple interrupted 3-0 Monocryl followed by a running 4-0 Monocryl subcuticular. The surgical sites were cleaned and dressed with surgical glue, prineo. All needle sponge and spent counts were correct 2. The patient was awoken from anesthesia and arrived stable doing well to the PACU.
== END 2018-03-29 15:40 | disposition home or self-care (01) ==
LOC: HSDC 07:46 → N07 07:46 → HSDI 07:46 → N07 16:19
PROVIDERS: ADMIT Internal Medicine; ATTEND Internal Medicine